=== PATIENT | female | born 1995 | race Caucasian/White ===

== ENCOUNTER 2023-10-29 00:50 | Emergency (ER) | payer OTHER, SELFPAY ==
[2023-10-29 00:55] VITALS: BP 120/76
[2023-10-29 02:06] LABS: % Basophils 0.4 % (0-2); % Immature Granulocytes 0.3 % (0-0.5); % Lymphocytes 30.8 % (20.5-51.1); % Monocytes 7.7 % (1.7-9.3); % Neutrophils 59.8 % (42.2-75.2); Absolute Eosinophils 0.1 10^3/uL (0-0.7); Absolute Lymphocytes 2.4 10^3/uL (1.2-3.4); Absolute Monocytes 0.6 10^3/uL (0.1-0.6); Absolute Neutrophils 4.6 10^3/uL (1.4-6.5); Hematocrit 34.9 % (37.0-47.0); Hemoglobin 12.1 g/dL (12.0-16.0); Mean Corp Hgb Conc. 34.7 g/dL (33.0-37.0); Mean Corpuscular Hgb 31.5 pg (27.0-31.0); Mean Corpuscular Volume 90.9 fL (81.0-99.0); Nucleated Red Blood Cells % 0 %; Platelet Count 188 10^3/uL (130-400); Red Blood Cell Count 3.84 10^6/uL (4.20-5.40); White Blood Cell Count 7.6 10^3/uL (4.8-10.8)
--- NOTE | 2023-10-29 02:07 | ED.GENMED ---
History of Present Illness
<MARIZA Coronado - Last Filed: 10/29/23 05:37>
General
Chief Complaint: Abdominal Pain
Source: patient and member of congress
Exam Limitations: other (Language barrier, jamaican)
Time Seen by Provider: 10/29/23 01:41
Nursing documentation reviewed up to this point in time: agreed with
Travel History
Have you had any contact with someone who has COVID-19?: No
Do you have any symptoms of coronavirus? Fever > 100 degrees, chills, cough, shortness of breath, sore throat, loss of taste or smell, muscle aches, or headache?: No
History of Present Illness
History of Present Illness:
Pt is a 28 yo [place]an-speaking female with PMH of ovarian cysts who presents with 'ovarian' ovarian pain. Pt states via member of congress that she woke up around 11pm with 10/10 bilateral 'ovarian' pain. She took 2 ibuprofen which made the pain worse. The
pain was constant and she was unable to relieve it with movement or change in position. The pain radiating into her quads b/l and they felt 'numb'. She had associated trouble breathing and nausea, denies vomiting. Pt states the pain then
spontaneously relieved after 1.5 hours. She is currently not in pain but states she has a 'pulling sensation' stretching from her ovaries to her navel. Denies constipation (last bowel movement yesterday), diarrhea, urinary symptoms, chest pain, back
pain. Denies recent fevers or illnesses. LMP was about one month ago, she is expecting her period in 2 days. Her periods are typically painful but never like this.
Review of Systems
<MARIZA Coronado - Last Filed: 10/29/23 05:37>
Review of Systems
Allergies reviewed?: Yes
All Other Systems: ROS reviewed and negative except as documented in HPI and ROS
Phy Exam
<MARIZA Coronado - Last Filed: 10/29/23 05:37>
General Physical Exam
General Presentation: well appearing and no apparent distress
General age: appears stated age
General Skin: warm and dry
General Mental: alert
General Hydration: appears well hydrated
ENT Exam
ENT Exam: pharynx normal, neck supple, normocephalic and swallowing well
Eye Exam
Eye Exam: PERRL and conjunctiva normal
Cardiovascular Exam
Cardiovascular Exam: regular rate/rhythm, no edema, no gallop, no murmur and normal peripheral pulses
Pulmonary Exam
Pulmonary Exam: lungs clear, no respiratory distress, no rales, no crackles, no rhonchi, no wheezing and no cough
Gastrointestinal Exam
Gastrointestinal Exam: normal bowel sounds, soft, non distended, guarding and tender (suprapubic tenderness most apparent. Also some lower abdominal tenderness in both RLQ and LLQ. Negative obturator or psoas signs. )
Neurological Exam
Neurological Exam: alert, oriented x3 and speech normal
Skin Exam
Skin Exam: normal color and warm/dry
Psychiatric Exam
Psychiatric Exam: normal mood/affect
Course
<MARIZA Coronado - Last Filed: 10/29/23 05:37>
Orders/Labs/Results
Orders:
Orders
10/29/23 01:16
Test Result ONCE
10/29/23 01:43
Complete Blood Count/With Diff Urgent
Comprehensive Metabolic Panel Urgent
HCG, Serum Qualitative Screen Urgent
10/29/23 02:07
Urinalysis Reflex To Culture Urgent
Date Specimen was Collected: 10/29/23
Time Specimen was Collected: 02:06
Urine Microscopic Reflex Cult Urgent
Urine Culture Urgent
CHARISMA Source: U
Specimen Description:
Date Specimen was Collected: 10/29/23
Time Specimen was Collected: 02:06
10/29/23 02:11
US Pelvis Only (non-obstetric) Urgent
Comment:
Reason For Exam: 'ovarian' pain
10/29/23 02:14
0.9% Sodium Chloride 1000 ml [Nss] 1,000 ml IV BOLUS
Abnormal Lab Results
10/29/23 10/29/23
01:43 02:07
RBC 3.84 L 10^6/uL
(4.20-5.40)
Hct 34.9 L %
(37.0-47.0)
MCH 31.5 H pg
(27.0-31.0)
BUN 18 H mg/dl
(7-17)
Glucose 110 H mg/dl
(70-99)
Urine Ketones 2+ A
(Negative)
Ur Occult Blood Reflex Trace A
(Negative)
Leukocyte Esterase Rfl Trace A
(Negative)
Urine RBC 3-6 A /HPF
(0-2)
Urine Bacteria (Reflex) Moderate A
(Negative)
10/29/23 01:43
10/29/23 01:43
Vital Signs
Initial and Last Documented VS:
Initial Vital Signs
Temp Pulse Resp BP Pulse Ox
98.4 F 78 18 120/76 100
10/29/23 00:55 10/29/23 00:55 10/29/23 00:55 10/29/23 00:55 10/29/23 00:55
Last Documented Vital Signs
Temp Pulse Resp BP Pulse Ox
98.4 F 68 19 103/65 98
10/29/23 00:55 10/29/23 04:30 10/29/23 04:30 10/29/23 03:00 10/29/23 04:30
Denilt;Bretn Lala, DO - Last Filed: 10/29/23 05:34>
Orders/Labs/Results
Orders:
Orders
10/29/23 01:16
Test Result ONCE
10/29/23 01:43
Complete Blood Count/With Diff Urgent
Comprehensive Metabolic Panel Urgent
HCG, Serum Qualitative Screen Urgent
10/29/23 02:07
Urinalysis Reflex To Culture Urgent
Date Specimen was Collected: 10/29/23
Time Specimen was Collected: 02:06
Urine Microscopic Reflex Cult Urgent
Urine Culture Urgent
CHARISMA Source: U
Specimen Description:
Date Specimen was Collected: 10/29/23
Time Specimen was Collected: 02:06
10/29/23 02:11
US Pelvis Only (non-obstetric) Urgent
Comment:
Reason For Exam: 'ovarian' pain
10/29/23 02:14
0.9% Sodium Chloride 1000 ml [Nss] 1,000 ml IV BOLUS
Abnormal Lab Results
10/29/23 10/29/23
01:43 02:07
RBC 3.84 L 10^6/uL
(4.20-5.40)
Hct 34.9 L %
(37.0-47.0)
MCH 31.5 H pg
(27.0-31.0)
BUN 18 H mg/dl
(7-17)
Glucose 110 H mg/dl
(70-99)
Urine Ketones 2+ A
(Negative)
Ur Occult Blood Reflex Trace A
(Negative)
Leukocyte Esterase Rfl Trace A
(Negative)
Urine RBC 3-6 A /HPF
(0-2)
Urine Bacteria (Reflex) Moderate A
(Negative)
10/29/23 01:43
10/29/23 01:43
Vital Signs
Initial and Last Documented VS:
Initial Vital Signs
Temp Pulse Resp BP Pulse Ox
98.4 F 78 18 120/76 100
10/29/23 00:55 10/29/23 00:55 10/29/23 00:55 10/29/23 00:55 10/29/23 00:55
Last Documented Vital Signs
Temp Pulse Resp BP Pulse Ox
98.4 F 68 19 103/65 98
10/29/23 00:55 10/29/23 04:30 10/29/23 04:30 10/29/23 03:00 10/29/23 04:30
<MARIZA Coronado - Last Filed: 10/29/23 05:37>
MDM/Problems Addressed
Differential Diagnosis Includes:
ovarian cyst, ovarian torsion, nephrolithiasis, UTI, pyelonephritis, ectopic , appendicitis, diverticulitis
MDM/Problems Addressed:
28 yo female with PMH of ovarian cysts presenting with lower abdominal pain which awoke her from sleep
<MARIZA Coronado - Last Filed: 10/29/23 05:37>
*Critical Care Note
Total Time (30-74mins, 75-104mins- exclusive of procedures): Not Applicable
<MARIZA Coronado - Last Filed: 10/29/23 05:37>
Update Note
Update Note:
10/29/2023 0322 AM: Pt resting comfortably in bed. Via member of congress, states she is not in any pain, just the same pulling sensation from her ovaries to her navel. IV fluids are finished and she would like to be disconnected. Informed her of the plan
to do a pelvic US.
<Brnet Lala DO - Last Filed: 10/29/23 05:34>
Update Note
Update Note:
10/29/2023 0322 AM: Pt resting comfortably in bed. Via member of congress, states she is not in any pain, just the same pulling sensation from her ovaries to her navel. IV fluids are finished and she would like to be disconnected. Informed her of the plan
to do a pelvic US.
IMPRESSION:
-Anteverted uterus. No myometrial mass. Unremarkable endometrium, with bilayer measuring 5 mm.
-Right ovary measures up to 2.8 cm. Nonedematous stroma. Dominant 1.6 cm follicle. Normal arterial and venous flow on spectral Doppler. No paraovarian mass.
-Left ovary measures up to 4.9 cm (appears undermeasured in the transverse plane). There are 2 follicular cysts, which measure 3.1 cm and 2.4 cm, similar to the recent CT. Nonedematous intervening ovarian stroma. Normal arterial and venous flow on
spectral Doppler. No paraovarian mass.
-Small anechoic free fluid in the pelvic cul-de-sac is similar to slightly increased in volume from prior CT abdomen, potentially secondary to rupture/leakage of the ovarian cyst(s).
ED Attending Note
<MARIZA Coronado - Last Filed: 10/29/23 05:37>
-
Portions of this chart may have been created with voice recognition software.� Occasional wrong word or��sound alike� substitutions may have occurred due to the inherent limitations of voice recognition software.
<Brent Lala DO - Last Filed: 10/29/23 05:34>
ED Attending Note
Patient seen and examined by attending physician: Yes
I performed the substantive portion of visit, reviewed & personally made and approve the management plan that is documented in note by myself or DANNY.: Yes
Discharge Plan
Departure
Patient Disposition: Home (Routine Discharge)
Date of Disposition: 10/29/23
Time of Disposition: 05:20
Patient with high blood pressure during this ER visit?: No
Condition: Good
Discharge Problem:
Pelvic pain, Ovarian cyst
Instructions: Ovarian Cyst (DC), Pelvic Pain ED
Prescriptions:
New
diclofenac sodium 75 mg tablet,delayed release (DR/EC)
75 mg PO BID Qty: 10 0RF
Referrals:
Nickolas Price DO [Family Provider] -
Activity Restrictions/Additional Instructions:
It was a pleasure meeting you and taking part in your care. We hope for your continued healing and wellness.
Please read discharge instructions in their entirety. However, they are for general education and may not describe your exact diagnosis at discharge. Information on your ER visit and medical conditions were discussed with you along with appropriate
follow up information...
If indicated, please take your medications as instructed and indicated on discharge paperwork.
Please schedule a follow up appointment as directed. Call to schedule an appointment
Please return to the emergency department with ANY change in, persisting, or worsening of symptoms. If any of your symptoms do not improve, or persist, or become more severe within 6-12 hours, please return to the emergency department for further
care.
Please return to the emergency department if you develop a headache, neck pain/stiffness, fever greater than 100.4F, chest pain, shortness of breath, persistent nausea, vomiting, slurred speech, difficulty walking, numbness/tingling, weakness, signs
of infection or any other symptoms that are worrisome to you.
If you have any questions or concerns please do not hesitate to call the Hospital at or E-mail me directly at [email or web address]
Interventions
Interventions:
*Risk Screen - Suicide Last Done: 10/29/23 00:55
*Neglect/Abuse Screening Last Done: 10/29/23 00:55
RM-Qpmkyi-Anfftjlrto Assessment Last Done: 10/29/23 01:28
[2023-10-29 02:11] VITALS: BP 113/75
[2023-10-29] MEDS: NSS 1000 IV (02:15)
[2023-10-29 02:22] LABS: ALT (SGPT) 17 U/L (0-35); AST (SGOT) 18 U/L (14-36); Albumin 3.9 g/dl (3.5-5.0); Alkaline Phosphatase 57 U/L (38-126); Blood Urea Nitrogen 18 mg/dl (7-17); Calcium 9.5 mg/dl (8.4-10.2); Carbon Dioxide 22 mmol/L (22-30); Chloride 105 mmol/L (98-107); Glucose 110 mg/dl (70-99); Sodium 138 mmol/L (135-145); Total Bilirubin 0.6 mg/dl (0.2-1.3); Total Protein 6.6 g/dl (6.3-8.2); eGFR > 60.00
[2023-10-29 02:25] LABS: HCG, Serum Qualitative Screen Negative
[2023-10-29 02:29] LABS: Urine Albumin Trace (Neg - Trace); Urine Bilirubin Negative (Negative); Urine Character Clear (Clear); Urine Color Yellow; Urine Glucose Negative (Negative); Urine Ketone 2+ (Negative); Urine Leukocyte Trace (Negative); Urine Nitrite Negative (Negative); Urine Occult Blood Trace (Negative); Urine Specific Gravity 1.025 (<1.030); Urine Urobilinogen Negative (Neg - 1+)
[2023-10-29 02:39] LABS: Urine Mucus Many; Urine Squamous Cell >30 /LPF (Few)
[2023-10-29 02:40] LABS: Urine Amorphous Seen; Urine White Cell 0-2 /HPF (0-5)
[2023-10-29 02:41] LABS: Urine Bacteria Moderate (Negative)
[2023-10-29 03:00] VITALS: BP 103/65
[2023-10-29 05:00] VITALS: BP 108/66
== END 2023-10-29 05:30 | disposition home or self-care (01) ==
LOC: EMR 00:50
PROVIDERS: EMERGENCY PHYSICIAN Student in an Organized Health Care Education/Training Program; FAMILY PHYSICIAN Family Medicine
DX: R10.2 Pelvic and perineal pain (principal); N83.209 Unspecified ovarian cyst, unspecified side
CPT/HCPCS: 99284; 96360; 76856; 80053; 81003; 81015; 84703; 85025; 87086

== ENCOUNTER 2023-11-11 23:55 | Emergency (ER) | payer OTHER, SELFPAY ==
[2023-11-12] VITALS: BP 140/88
--- NOTE | 2023-11-12 00:37 | ED.GENMED ---
History of Present Illness
General
Chief Complaint: Flank Pain
Source: patient
Exam Limitations: other (Language line)
Time Seen by Provider: 11/12/23 00:18
Travel History
Have you had any contact with someone who has COVID-19?: No
Do you have any symptoms of coronavirus? Fever > 100 degrees, chills, cough, shortness of breath, sore throat, loss of taste or smell, muscle aches, or headache?: No
History of Present Illness
History of Present Illness:
This is a 28 year old female that comes in with multiple complaints. States that she was having a panic attack became dizzy and was not getting enough air. States that she was told that she has some inflammation in the abd after having a CT scan.
States that she has been anxious and shaky. State that this makes it hard for her to breath and then she is tachycardia and feels like she is going to pass out. States that in the past she went to a Clinic and they gave her something for anxiety but
this did not work. States that she has had diarrhea, dizziness and heaviness in her head. Denies any fever, chills, chest pain, abd pain, nausea, vomiting, urinary burning.
Past History
Past History
ED Past Medical History: Psychiatric (Anxiety) and Other (Ovarian cyst, Renal calculus)
ED Past Surgical History: None
Social History
Tobacco: Non-smoker
Alcohol: None
Personal:
Living: with family
Review of Systems
Review of Systems
All Other Systems: ROS reviewed and negative except as documented in HPI and ROS
Constitutional: Reports no symptoms; Denies fever or chills
EENT: Reports no symptoms
Respiratory: Reports trouble breathing; Denies cough
Cardiac: Reports no symptoms; Denies chest pain
ABD/GI: Reports diarrhea; Denies abdominal pain, nausea or vomiting
: Reports no symptoms; Denies dysuria, frequency or urgency
Musculoskeletal: Reports no symptoms
Skin: Reports no symptoms
Neurological: Reports dizzy and headache (Heaviness in her head)
Psychiatric: Reports no symptoms
Phy Exam
General Physical Exam
General Presentation: no apparent distress
General age: appears stated age
General Skin: warm and dry
General Habitus: normal
General Mental: tearful
General Hydration: appears well hydrated
ENT Exam
ENT Exam: TM's normal, pharynx normal and neck supple
Eye Exam
Eye Exam: EOMI
Cardiovascular Exam
Cardiovascular Exam: regular rate/rhythm, no edema, no murmur and normal peripheral pulses
Pulmonary Exam
Pulmonary Exam: lungs clear, no respiratory distress, no rales, chest non tender, no crackles, no rhonchi, no wheezing and no cough
Gastrointestinal Exam
Gastrointestinal Exam: normal bowel sounds, non tender, soft, no organomegaly, no pulsatile mass and non distended
Musculoskeletal Exam
Musculoskeletal Exam: full ROM and no edema
Skin Exam
Skin Exam: normal color, warm/dry, no rash and no petechia
Psychiatric Exam
Psychiatric Exam: normal mood/affect (Appears very calm but states that she is anxious)
Course
Orders/Labs/Results
Orders:
Orders
11/12/23 00:37
CT Head W/o Iv Contrast Urgent
Comment:
Reason For Exam: Dizziness with heavy feeling in head
Test Result ONCE
11/12/23 00:38
Complete Blood Count/With Diff Urgent
Comprehensive Metabolic Panel Urgent
HCG, Serum Qualitative Screen Urgent
TSH Reflex To Free T4 Urgent
11/12/23 01:55
Urinalysis Reflex To Culture Urgent
Date Specimen was Collected: 11/12/23
Time Specimen was Collected: 01:54
11/12/23 01:56
Orthostatic VS- Treatment ONCE
Abnormal Lab Results
11/12/23 11/12/23
00:38 01:55
RBC 3.97 L 10^6/uL
(4.20-5.40)
MCH 31.5 H pg
(27.0-31.0)
Absolute Neuts (auto) 6.6 H 10^3/uL
(1.4-6.5)
Chloride 108 H mmol/L
(98-107)
Carbon Dioxide 21 L mmol/L
(22-30)
Glucose 126 H mg/dl
(70-99)
Urine Ketones Trace A
(Negative)
11/12/23 00:38
11/12/23 00:38
Glucose nonfasting. HCG negative.
Vital Signs
Initial and Last Documented VS:
Initial Vital Signs
Temp Pulse Resp BP Pulse Ox
99 F 101 28 140/88 100
11/12/23 00:00 11/12/23 00:00 11/12/23 00:00 11/12/23 00:00 11/12/23 00:00
Last Documented Vital Signs
Temp Pulse Resp BP Pulse Ox
99 F 101 28 140/88 100
11/12/23 00:00 11/12/23 00:00 11/12/23 00:00 11/12/23 00:00 11/12/23 00:00
MDM/Problems Addressed
Differential Diagnosis Includes:
Anxiety, Hyperventilation,
MDM/Problems Addressed:
This is a 28 year old female that comes in with c/o anxiety. States that this make her feels like she cant get enough air and that she is dizzy and going to pass out. States that her head feels heavy.
Will check labs, Monitor patient and get CT of head.
Back into see patient. Via the language line, explained to patient that her blood work is normal along with the CT of her head. Urine is negative for infection and her TSH is normal. Explained to patient that she needs to follow up with the family
doctor for further evaluation of her anxiety. Since he is following patient they can decide between each other if patent needs any medication. Patient to increase her water intake to 8-8oz glasses daily. She can use Tylenol or Ibuprofen for any
headache pain. Return with any concerns.
Chronic conditions affecting care: Psychiatric illness
Acute Exacerbation and/or Progression of Chronic Illness: Psychiatric illness
*Radiology
Radiology exam reviewed: radiology read reviewed (CT head- night hawk- No acute hemorrhage, herniation or hydrocephalus. No calvarial fracture. The visualized paranasal sinuses and mastoid air cells are clear. )
*Pulse Oximetry
Patient hypoxic: no
*[employer] Interpretation
Rate: normal
Heart Rate: 74
Rhythm: sinus
*Critical Care Note
Total Time (30-74mins, 75-104mins- exclusive of procedures): Not Applicable
ED Attending Note
-
Portions of this chart may have been created with voice recognition software.� Occasional wrong word or��sound alike� substitutions may have occurred due to the inherent limitations of voice recognition software.
Discharge Plan
Departure
Patient Disposition: Home (Routine Discharge)
Date of Disposition: 11/12/23
Time of Disposition: 02:12
Patient with high blood pressure during this ER visit?: Yes
Condition: Good
Covid-19: Not Applicable
Discharge Problem:
Anxiety
Instructions: Anxiety, Adult (DC), Panic Disorder (DC), BLOOD PRESSURE
Prescriptions:
No Action
diclofenac sodium 75 mg tablet,delayed release (DR/EC)
75 mg PO BID Qty: 10 0RF
Referrals:
Nickolas Price, [Family Provider] - Follow up in 2-3 days
Activity Restrictions/Additional Instructions:
As discussed, your blood work is normal along with your Thyroid functions. Your CT of the head is normal. Your urine is negative for any infection. Please increase your water intake to 8-8oz glasses daily. You may use Tylenol 1000mg every 6 hours
and/or Ibuprofen 600mg every 6 hours with food for any headache pain. Follow up with the family doctor and discuss with him about your anxiety. IF YOU HAVE ANY OTHER CONCERNS PLEASE RETURN TO THE EMERGENCY ROOM.
Interventions
Interventions:
*Risk Screen - Suicide Last Done: 11/12/23 01:28
*General Assessment Last Done: 11/12/23 01:29
*Neglect/Abuse Screening Last Done: 11/12/23 01:29
*ED COVID-19 Vaccine History Last Done: 11/12/23 01:29
ED-Psychological Assessment Last Done: 11/12/23 01:28
ED-Female Genitourinary Assessment Last Done: 11/12/23 01:28
KW-Pslmjr-Qgyvtifhni Assessment Last Done: 11/12/23 01:28
[2023-11-12 00:58] LABS: % Basophils 0.3 % (0-2); % Eosinophils 0.8 % (0-6); % Immature Granulocytes 0.2 % (0-0.5); % Lymphocytes 23.5 % (20.5-51.1); % Monocytes 6.1 % (1.7-9.3); % Neutrophils 69.1 % (42.2-75.2); Absolute Eosinophils 0.1 10^3/uL (0-0.7); Absolute Lymphocytes 2.3 10^3/uL (1.2-3.4); Absolute Monocytes 0.6 10^3/uL (0.1-0.6); Absolute Neutrophils 6.6 10^3/uL (1.4-6.5); HCG, Serum Qualitative Screen Negative; Hematocrit 37.2 % (37.0-47.0); Hemoglobin 12.5 g/dL (12.0-16.0); Mean Corp Hgb Conc. 33.6 g/dL (33.0-37.0); Mean Corpuscular Hgb 31.5 pg (27.0-31.0); Mean Corpuscular Volume 93.7 fL (81.0-99.0); Mean Platelet Volume 9.9 fL (7.4-10.4); Nucleated Red Blood Cells % 0 %; Platelet Count 209 10^3/uL (130-400); Red Blood Cell Count 3.97 10^6/uL (4.20-5.40); Red Cell Dist. Width 12.6 % (11.5-14.5); White Blood Cell Count 9.6 10^3/uL (4.8-10.8)
[2023-11-12 01:02] LABS: ALT (SGPT) 16 U/L (0-35); AST (SGOT) 18 U/L (14-36); Alkaline Phosphatase 69 U/L (38-126); Blood Urea Nitrogen 12 mg/dl (7-17); Carbon Dioxide 21 mmol/L (22-30); Chloride 108 mmol/L (98-107); Glucose 126 mg/dl (70-99); Potassium 3.7 mmol/L (3.5-5.1); Sodium 139 mmol/L (135-145); Total Bilirubin 0.6 mg/dl (0.2-1.3); Total Protein 6.8 g/dl (6.3-8.2); eGFR > 60.00
[2023-11-12 01:47] LABS: TSH Reflex To Free T4 3.53 uIU/ml (0.47-4.68)
[2023-11-12 02:00] LABS: Urine Albumin Negative (Neg - Trace); Urine Bilirubin Negative (Negative); Urine Character Clear (Clear); Urine Color Yellow; Urine Glucose Negative (Negative); Urine Ketone Trace (Negative); Urine Leukocyte Negative (Negative); Urine Nitrite Negative (Negative); Urine Occult Blood Negative (Negative); Urine Specific Gravity 1.015 (<1.030); Urine Urobilinogen Negative (Neg - 1+)
[2023-11-12 02:11] VITALS: BP 105/57; BP 117/66; BP 130/91; PULSE 101; PULSE 65; PULSE 71
[2023-11-12 02:13] VITALS: BP 130/91
== END 2023-11-12 02:30 | disposition home or self-care (01) ==
LOC: EMR 23:55
PROVIDERS: Clinical Nurse Specialist Family Health; EMERGENCY PHYSICIAN Student in an Organized Health Care Education/Training Program; FAMILY PHYSICIAN Family Medicine
DX: F41.9 Anxiety disorder, unspecified (principal)
CPT/HCPCS: 99284; 70450; 80053; 81003; 84443; 84703; 85025

== ENCOUNTER 2025-09-01 23:06 | Emergency (ER) | payer OTHER, SELFPAY ==
[2025-09-01 23:12] VITALS: BP 107/76
[2025-09-01 23:35] VITALS: BMI 28.8
[2025-09-01 23:42] VITALS: BP 105/61
[2025-09-02] VITALS: BP 101/57
[2025-09-02 00:02] LABS: Hematocrit 37.7 % (37.0-47.0); Hemoglobin 12.5 g/dL (12.0-16.0); Mean Corp Hgb Conc. 33.2 g/dL (33.0-37.0); Mean Corpuscular Volume 92.0 fL (81.0-99.0); Nucleated Red Blood Cells % 0 %; Platelet Count 206 10^3/uL (130-400); Red Cell Dist. Width 13.6 % (11.5-14.5)
[2025-09-02 00:12] LABS: HCG, Serum Qualitative Screen Negative
--- NOTE | 2025-09-02 00:55 | ED.GENMED ---
History of Present Illness
General
Chief Complaint: Female [employer]/Gu symptoms
Source: patient
Exam Limitations: none
Time Seen by Provider: 09/02/25 00:05
Nursing documentation reviewed up to this point in time: agreed with
History of Present Illness
History of Present Illness:
30-year-old female with history as noted presents for evaluation of pelvic pain. Patient reports onset of symptoms this evening and have been constant since onset. Pain is located in the left lower abdomen/pelvic region. No clear triggering
factors noted. It was relieved somewhat with Motrin. She denies any associated nausea or vomiting. Denies diarrhea or constipation. She has not noted any urinary symptoms. Denies vaginal bleeding or discharge. Last menstrual period roughly 3
weeks ago. She has not had fever or chills. She says she had similar symptoms from a ruptured ovarian cyst in the past.
Past History
Past History
ED Past Medical History: Psychiatric (Anxiety) and Other (Ovarian cyst, Renal calculus)
ED Past Surgical History: None
Social History
Tobacco: Non-smoker
Alcohol: None
Personal:
Living: with family
Review of Systems
Review of Systems
All Other Systems: ROS reviewed and negative except as documented in HPI and ROS
Constitutional: Denies fever or chills
Respiratory: Denies trouble breathing
Cardiac: Denies chest pain
ABD/GI: Reports abdominal pain; Denies nausea, vomiting, diarrhea or constipated
: Denies dysuria, frequency, flank pain, bleeding or discharge
Musculoskeletal: Denies neck pain or back pain
Neurological: Denies dizzy or headache
Phy Exam
Physical Exam
Physical Exam:
General: Awake, alert, oriented x3; no acute distress
Head: Normocephalic, atraumatic
Eyes: Conjunctiva normal, sclera anicteric
Throat: Airway intact, handling secretions
Neck: Trachea midline
Lungs: Breathing comfortably without distress
Heart: Regular rate
Abd: Soft, non distended, tender to palpation in the left lower quadrant/pelvic region without peritoneal signs
Neuro: Grossly intact
Skin: no rash in area of concern
Extremities: Warm and well-perfused
Scores
Heart Failure Risk
Heart Failure Risk Score: Not Applicable
Heart Score for Chest Pain Patients
STEMI patient?: Not applicable
Withdrawal Assessment of Alcohol
Withdrawal Assessment Completed?: Not applicable
Course
Orders/Labs/Results
Orders:
Orders
09/01/25 23:25
Test Result ONCE
09/01/25 23:43
Complete Blood Count/With Diff Urgent
HCG, Serum Qualitative Screen Urgent
09/02/25 00:06
US Pelvis W Transvag Combined Urgent
Comment:
Reason For Exam: LLQ abd pain
09/02/25 00:17
Comprehensive Metabolic Panel Routine
Comment: REDRAW
09/02/25 02:15
Urinalysis Reflex To Culture Urgent
Date Specimen was Collected: 09/02/25
Time Specimen was Collected: 02:14
Abnormal Lab Results
09/01/25 09/02/25
23:43 00:17
RBC 4.10 L 10^6/uL
(4.20-5.40)
Absolute Monos (auto) 0.7 H 10^3/uL
(0.1-0.6)
BUN 22 H mg/dl
(7-17)
09/01/25 23:43
09/02/25 00:17
Vital Signs
Initial and Last Documented VS:
Initial Vital Signs
Temp Pulse Resp BP Pulse Ox
36.6 C 67 16 107/76 96
09/01/25 23:12 09/01/25 23:12 09/01/25 23:12 09/01/25 23:12 09/01/25 23:12
Last Documented Vital Signs
Temp Pulse Resp BP Pulse Ox
36.6 C 78 18 107/75 100
09/01/25 23:12 09/01/25 23:43 09/01/25 23:43 09/02/25 01:00 09/02/25 01:15
MDM/Problems Addressed
Differential Diagnosis Includes:
Ovarian cyst, nephrolithiasis, UTI, diverticulitis
MDM/Problems Addressed:
30-year-old female with history as noted presents for left pelvic/lower abdominal pain similar to prior ovarian cyst. Improved with Motrin. Vitals and exam as above. Check labs, hCG, urine, ultrasound. Pain control as needed�declined at present.
Will reassess after the above.
Labs reviewed: CBC and CMP unremarkable. hCG is negative. Urinalysis is still pending. Pelvic ultrasound shows good flow to both ovaries. There are 2 complex cysts in the left with a small amount of free fluid overall suspect ruptured cyst. She
remains clinically stable, will await urinalysis results but can likely be discharged with supportive care.
Urinalysis bland. Clinical reassessment patient says she is feeling much better essentially pain-free now. Stable for discharge. Spoke about follow-up plan and return precautions and all questions answered.
*Radiology
Radiology exam reviewed: radiology read reviewed
*Pulse Oximetry
SaO2: 100
Oxygen Mode of Delivery: Room air
Patient hypoxic: no (100%)
*Critical Care Note
Total Time (30-74mins, 75-104mins- exclusive of procedures): Not Applicable
Data Reviewed
Review of Other/Old Records Reveals: Labs and Records
Source: patient and records
ED Attending Note
-
Portions of this chart may have been created with voice recognition software.� Occasional wrong word or��sound alike� substitutions may have occurred due to the inherent limitations of voice recognition software.
Discharge Plan
Departure
Patient Disposition: Home (Routine Discharge)
Date of Disposition: 09/02/25
Time of Disposition: 02:56
Patient with high blood pressure during this ER visit?: No
Discharge Problem:
Ovarian cyst
Instructions: Ovarian cysts
Prescriptions:
No Action
diclofenac sodium 75 mg tablet,delayed release (DR/EC)
75 mg PO BID Qty: 10 0RF
Referrals:
Nickolas Price, DO [Family Provider, Family Practice] - Follow up in 1 week
Activity Restrictions/Additional Instructions:
Thank you for visiting the Emergency Department at [facility].
1. Please schedule a follow up appointment as directed. Call first thing tomorrow morning to make an appointment.
2. If indicated, please take your medications as instructed and indicated on discharge paperwork.
3. If any of your symptoms do not improve, or persist, or become more severe within 6-12 hours, please return to the emergency department for further care.
4. Please return to the emergency department if you develop a headache, neck pain/stiffness, fever greater than 100.4F, chest pain, shortness of breath, persistent nausea, vomiting, slurred speech, difficulty walking, numbness/tingling, weakness,
signs of infection or any other symptoms that are worrisome to you.
Please call [phone] if you have any questions.
Interventions
Interventions:
*Risk Screen - Suicide Last Done: 09/01/25 23:12
*General Assessment Last Done: 09/01/25 23:35
*Neglect/Abuse Screening Last Done: 09/01/25 23:35
*ED COVID-19 Vaccine History Last Done: 09/01/25 23:35
*ED Influenza Vaccine History Last Done: 09/01/25 23:35
[facility] Fall Risk Assessment Tool Last Done: 09/01/25 23:35
ED-Female Genitourinary Assessment Last Done: 09/01/25 23:35
Discharge Date and Time
Print Language: Argentine
[2025-09-02 01:00] VITALS: BP 107/75
[2025-09-02 01:07] LABS: ALT (SGPT) 17 U/L (0-35); AST (SGOT) 21 U/L (14-36); Albumin 4.7 g/dl (3.5-5.0); Alkaline Phosphatase 75 U/L (38-126); Blood Urea Nitrogen 22 mg/dl (7-17); Calcium 9.8 mg/dl (8.4-10.2); Carbon Dioxide 24 mmol/L (22-30); Chloride 107 mmol/L (98-107); Estimated Creatinine Clearance 125 ml/min; Glucose 97 mg/dl (70-99); Potassium 4.4 mmol/L (3.5-5.1); Sodium 138 mmol/L (135-145); Total Protein 7.8 g/dl (6.3-8.2); eGFR > 60.00
[2025-09-02 02:50] LABS: Urine Character Clear (Clear)
[2025-09-02 03:14] VITALS: BP 109/70
== END 2025-09-02 03:15 | disposition home or self-care (01) ==
LOC: EMR 23:06
PROVIDERS: EMERGENCY PHYSICIAN Emergency Medicine; FAMILY PHYSICIAN Family Medicine
DX: N83.202 Unspecified ovarian cyst, left side (principal)
CPT/HCPCS: 99284; 76830; 76856; 80053; 81003; 84703; 85025